=== PATIENT | female | born 1975 | race Caucasian/White ===

== ENCOUNTER → 2016-09-28 | Outpatient (REF) | payer OTHER ==
[2016-09-28 12:26] LABS: FREE T4 0.94 NG/DL (0.76-1.46)
[2016-09-28 12:45] LABS: MEAN CORPUSCULAR HEMOGLOBIN 25.4 pg (27.0-33.0); MEAN CORPUSCULAR HGB CONC 30.7 g/dl (32.0-36.5); MEAN CORPUSCULAR VOLUME 82.9 fl (80.0-96.0); RED CELL DISTRIBUTION WIDTH 16.1 % (11.5-14.5)
== END ==
LOC: M SFHCPLAZ 11:09
PROVIDERS: ATTEND Nurse Practitioner Family
DX: D50.9 Iron deficiency anemia, unspecified (principal); E03.9 Hypothyroidism, unspecified; E55.9 Vitamin D deficiency, unspecified

== ENCOUNTER → 2017-05-03 | Outpatient (REF) | payer OTHER ==
[2017-05-03 12:27] LABS: ALBUMIN 4.1 GM/DL (3.2-5.2); ALBUMIN/GLOBULIN RATIO 1.21 (1.00-1.93); ALKALINE PHOSPHATASE 75 U/L (45-117); ALT/SGPT 21 U/L (12-78); ANION GAP 6 MEQ/L (8-16); AST/SGOT 12 U/L (15-37); BILIRUBIN,TOTAL 0.3 MG/DL (0.2-1.0); BLOOD UREA NITROGEN 10 MG/DL (7-18); CALCIUM LEVEL 9.2 MG/DL (8.5-10.1); CARBON DIOXIDE LEVEL 30 MEQ/L (21-32); CHLORIDE LEVEL 106 MEQ/L (98-107); CHOLESTEROL LEVEL 252 MG/DL (<200); FREE T4 0.98 NG/DL (0.76-1.46); GLOMERULAR FILTRATION RATE > 60.0 (>58); GLUCOSE, FASTING 98 MG/DL (70-105); POTASSIUM SERUM 4.8 MEQ/L (3.5-5.1); SODIUM LEVEL 142 MEQ/L (136-145); TOTAL PROTEIN 7.5 GM/DL (6.4-8.2); TRIGLYCERIDES LEVEL 159 MG/DL (<150)
== END ==
LOC: M SFHCPLAZ 08:37
PROVIDERS: ATTEND Nurse Practitioner Family
DX: E78.2 Mixed hyperlipidemia (principal); E03.9 Hypothyroidism, unspecified

== ENCOUNTER → 2017-06-06 | Outpatient (REF) | payer OTHER ==
[2017-06-06 19:36] LABS: ANION GAP 8 MEQ/L (8-16); BLOOD UREA NITROGEN 9 MG/DL (7-18); CALCIUM LEVEL 9.3 MG/DL (8.5-10.1); CARBON DIOXIDE LEVEL 31 MEQ/L (21-32); CHLORIDE LEVEL 97 MEQ/L (98-107); CREATININE FOR GFR 0.78 MG/DL (0.55-1.02); GLOMERULAR FILTRATION RATE > 60.0 (>58); GLUCOSE, FASTING 96 MG/DL (70-105); POTASSIUM SERUM 3.6 MEQ/L (3.5-5.1); SODIUM LEVEL 136 MEQ/L (136-145)
== END ==
LOC: M SFHCPLAZ 15:11
PROVIDERS: ATTEND Nurse Practitioner Family
DX: I10 Essential (primary) hypertension (principal)

== ENCOUNTER → 2017-07-01 | Outpatient (REF) | payer OTHER ==
[2017-07-05 14:10] LABS: FREE CORTISOL 24HR URINE 8 ug/24 hr (0-50); FREE CORTISOL URINE 2 ug/L (Undefined)
== END ==
LOC: M LAB REF 09:14
PROVIDERS: ATTEND Internal Medicine Endocrinology, Diabetes & Metabolism
DX: E66.01 Morbid (severe) obesity due to excess calories (principal); Z68.41 Body mass index [BMI] 40.0-44.9, adult

== ENCOUNTER → 2017-07-08 | Outpatient (REF) | payer OTHER ==
[2017-07-08 13:28] LABS: ANION GAP 9 MEQ/L (8-16); BLOOD UREA NITROGEN 9 MG/DL (7-18); CALCIUM LEVEL 9.2 MG/DL (8.5-10.1); CARBON DIOXIDE LEVEL 29 MEQ/L (21-32); CHLORIDE LEVEL 99 MEQ/L (98-107); CREATININE FOR GFR 0.79 MG/DL (0.55-1.02); GLOMERULAR FILTRATION RATE > 60.0 (>58); GLUCOSE, FASTING 96 MG/DL (70-105); POTASSIUM SERUM 3.7 MEQ/L (3.5-5.1); SODIUM LEVEL 137 MEQ/L (136-145)
== END ==
LOC: M SFHCADAM 10:22
PROVIDERS: ATTEND Nurse Practitioner Family
DX: I10 Essential (primary) hypertension (principal)

== ENCOUNTER → 2017-07-31 | Outpatient (REF) | payer OTHER | LOC: M LABDRWAD 13:47 | PROVIDERS: ATTEND Internal Medicine Endocrinology, Diabetes & Metabolism | DX: E03.9 Hypothyroidism, unspecified (principal) ==

== ENCOUNTER → 2017-08-15 | Outpatient (CLI) | payer BC | LOC: M WHC 14:33 | DX: Z12.31 Encounter for screening mammogram for malignant neoplasm of breast (principal) | CPT/HCPCS: 77067 ==

== ENCOUNTER → 2017-08-15 | Outpatient (REF) | payer OTHER | LOC: M SFHCWAGY 15:10 | DX: Z12.4 Encounter for screening for malignant neoplasm of cervix (principal) ==

== ENCOUNTER → 2017-11-16 | Outpatient (CLI) | payer OTHER ==
[2017-11-16 17:47] LABS: ANION GAP 7 MEQ/L (8-16); BLOOD UREA NITROGEN 10 MG/DL (7-18); CALCIUM LEVEL 8.7 MG/DL (8.5-10.1); CARBON DIOXIDE LEVEL 28 MEQ/L (21-32); CHLORIDE LEVEL 108 MEQ/L (98-107); CREATININE FOR GFR 0.85 MG/DL (0.55-1.30); GLOMERULAR FILTRATION RATE > 60.0 (>58); GLUCOSE, FASTING 103 MG/DL (70-100); POTASSIUM SERUM 4.4 MEQ/L (3.5-5.1); SODIUM LEVEL 143 MEQ/L (136-145)
== END ==
LOC: M ADAMS 08:07
DX: I10 Essential (primary) hypertension (principal)
CPT/HCPCS: 80048

== ENCOUNTER → 2018-07-14 | Outpatient (REF) | payer OTHER ==
[2018-07-14 13:59] LABS: ALBUMIN 4.2 GM/DL (3.2-5.2); ALBUMIN/GLOBULIN RATIO 1.27 (1.00-1.93); ALKALINE PHOSPHATASE 73 U/L (45-117); ALT/SGPT 22 U/L (12-78); ANION GAP 6 MEQ/L (8-16); AST/SGOT 13 U/L (7-37); BILIRUBIN,TOTAL 0.3 MG/DL (0.2-1.0); BLOOD UREA NITROGEN 14 MG/DL (7-18); CALCIUM LEVEL 9.2 MG/DL (8.5-10.1); CARBON DIOXIDE LEVEL 29 MEQ/L (21-32); CHLORIDE LEVEL 101 MEQ/L (98-107); CHOLESTEROL LEVEL 246 MG/DL (<200); CHOLESTEROL RISK RATIO 4.823 (<5); CREATININE FOR GFR 0.85 MG/DL (0.55-1.30); GLOMERULAR FILTRATION RATE > 60.0 (>58); GLUCOSE, FASTING 120 MG/DL (70-100); HDL CHOLESTEROL 51 MG/DL (>40); LDL CHOLESTEROL 159 MG/DL (<100); NON-HDL-C 195 MG/DL; POTASSIUM SERUM 4.6 MEQ/L (3.5-5.1); SODIUM LEVEL 136 MEQ/L (136-145); TOTAL PROTEIN 7.5 GM/DL (6.4-8.2); TRIGLYCERIDES LEVEL 180 MG/DL (<150)
== END ==
LOC: M SFHCADAM 08:03
DX: I10 Essential (primary) hypertension (principal); E78.2 Mixed hyperlipidemia
CPT/HCPCS: 80053

== ENCOUNTER → 2018-12-16 | Outpatient (REF) | payer OTHER ==
[2018-12-16 14:26] LABS: MALB URINE SIEMENS 9.1 MG/L; MAU/CREAT RATIO 5.8 MCG/MG (0.0-30.0)
[2018-12-16 14:43] LABS: ALBUMIN 3.8 GM/DL (3.2-5.2); ALT/SGPT 22 U/L (12-78); BILIRUBIN,TOTAL 0.4 MG/DL (0.2-1.0); BLOOD UREA NITROGEN 8 MG/DL (7-18); CALCIUM LEVEL 8.6 MG/DL (8.5-10.1); CARBON DIOXIDE LEVEL 28 MEQ/L (21-32); CHLORIDE LEVEL 101 MEQ/L (98-107); CREATININE FOR GFR 0.84 MG/DL (0.55-1.30); GLOMERULAR FILTRATION RATE > 60.0 (>58); GLUCOSE, FASTING 112 MG/DL (70-100); POTASSIUM SERUM 4.1 MEQ/L (3.5-5.1); SODIUM LEVEL 135 MEQ/L (136-145); TOTAL PROTEIN 7.7 GM/DL (6.4-8.2)
[2018-12-16 14:49] LABS: TOTAL 25(OH) VITAMIN D 41.4 NG/ML (30.0-100.0)
== END ==
LOC: M SFHCADAM 08:12
PROVIDERS: ATTEND Nurse Practitioner Family
DX: I10 Essential (primary) hypertension (principal); R73.03 Prediabetes; E55.9 Vitamin D deficiency, unspecified

== ENCOUNTER → 2019-07-18 | Outpatient (CLI) | payer OTHER ==
[2019-07-18 11:27] LABS: ALBUMIN 3.7 GM/DL (3.2-5.2); ALT/SGPT 25 U/L (12-78); BILIRUBIN,TOTAL 0.6 MG/DL (0.2-1.0); BLOOD UREA NITROGEN 8 MG/DL (7-18); CALCIUM LEVEL 8.8 MG/DL (8.5-10.1); CARBON DIOXIDE LEVEL 29 MEQ/L (21-32); CHLORIDE LEVEL 102 MEQ/L (98-107); CHOLESTEROL LEVEL 247 MG/DL (<200); CREATININE FOR GFR 0.86 MG/DL (0.55-1.30); GLOMERULAR FILTRATION RATE > 60.0 (>58); GLUCOSE, FASTING 107 MG/DL (70-100); HDL CHOLESTEROL 50 MG/DL (>40); LDL CHOLESTEROL 165 MG/DL (<100); NON-HDL-C 197 MG/DL; POTASSIUM SERUM 4.4 MEQ/L (3.5-5.1); SODIUM LEVEL 139 MEQ/L (136-145); TOTAL PROTEIN 7.2 GM/DL (6.4-8.2); TRIGLYCERIDES LEVEL 158 MG/DL (<150)
[2019-07-18 11:41] LABS: MALB URINE SIEMENS 6.9 MG/L; MAU/CREAT RATIO 3.2 MCG/MG (0.0-30.0)
== END ==
LOC: M ADAMS 08:36
PROVIDERS: ATTEND Nurse Practitioner Family
DX: I10 Essential (primary) hypertension (principal); R73.03 Prediabetes

== ENCOUNTER → 2020-09-20 | Outpatient (REF) | payer OTHER ==
[2020-09-20 14:32] LABS: BLOOD UREA NITROGEN 9 MG/DL (7-18); CALCIUM LEVEL 9.8 MG/DL (8.5-10.1); CARBON DIOXIDE LEVEL 31 MEQ/L (21-32); CHLORIDE LEVEL 96 MEQ/L (98-107); CREATININE FOR GFR 0.89 MG/DL (0.55-1.30); GLOMERULAR FILTRATION RATE > 60.0 (>58); GLUCOSE, FASTING 108 MG/DL (70-100); POTASSIUM SERUM 4.4 MEQ/L (3.5-5.1); SODIUM LEVEL 134 MEQ/L (136-145)
[2020-09-20 15:35] LABS: BASO # 0.1 10^3/uL (0.0-0.2); EOS # 0.1 10^3/uL (0.0-0.5); EOS % 1.4 % (0.0-3.0); HEMATOCRIT 41.8 % (36.0-47.0); HEMOGLOBIN 13.3 g/dl (12.0-15.5); LYMPH # 2.5 10^3/uL (1.5-5.0); LYMPH % 29.1 % (24.0-44.0); MEAN CORPUSCULAR HEMOGLOBIN 28.9 pg (27.0-33.0); MEAN CORPUSCULAR HGB CONC 31.8 g/dl (32.0-36.5); MEAN CORPUSCULAR VOLUME 90.7 fl (80.0-96.0); MONO # 0.7 10^3/uL (0.0-0.8); MONO % 7.8 % (0.0-5.0); NEUTROPHILS # 5.1 10^3/uL (1.5-8.5); NEUTROPHILS % 60.2 % (36.0-66.0); PLATELET COUNT, AUTOMATED 280 10^3/uL (150-450); RED BLOOD COUNT 4.61 10^6/uL (4.00-5.40); WHITE BLOOD COUNT 8.4 10^3/uL (4.0-10.0)
== END ==
LOC: M SFHCPLAZ 11:13
PROVIDERS: ATTEND Nurse Practitioner Family
DX: H00.034 Abscess of left upper eyelid (principal); I10 Essential (primary) hypertension

== ENCOUNTER → 2020-12-23 | Outpatient (REF) | payer OTHER ==
[2020-12-23 14:30] LABS: ALBUMIN 4.1 GM/DL (3.2-5.2); ALT/SGPT 22 U/L (12-78); BILIRUBIN,TOTAL 0.4 MG/DL (0.2-1.0); BLOOD UREA NITROGEN 13 MG/DL (7-18); CALCIUM LEVEL 9.4 MG/DL (8.5-10.1); CARBON DIOXIDE LEVEL 30 MEQ/L (21-32); CHLORIDE LEVEL 101 MEQ/L (98-107); CHOLESTEROL LEVEL 275 MG/DL (<200); CHOLESTEROL RISK RATIO 5.188 (<5); CREATININE FOR GFR 0.81 MG/DL (0.55-1.30); GLOMERULAR FILTRATION RATE > 60.0 (>58); GLUCOSE, FASTING 116 MG/DL (70-100); HDL CHOLESTEROL 53 MG/DL (>40); LDL CHOLESTEROL 185 MG/DL (<100); NON-HDL-C 222 MG/DL; POTASSIUM SERUM 4.7 MEQ/L (3.5-5.1); SODIUM LEVEL 136 MEQ/L (136-145); TOTAL 25(OH) VITAMIN D 48.8 NG/ML (30.0-100.0); TOTAL PROTEIN 7.4 GM/DL (6.4-8.2); TRIGLYCERIDES LEVEL 186 MG/DL (<150)
[2020-12-24 08:09] LABS: LDL DIRECT 188 mg/dL (0-99)
== END ==
LOC: M LAB REF 12:14 → M LABDRWAD 12:14
PROVIDERS: ATTEND Internal Medicine Endocrinology, Diabetes & Metabolism
DX: E78.2 Mixed hyperlipidemia (principal); E55.9 Vitamin D deficiency, unspecified; E03.9 Hypothyroidism, unspecified

== ENCOUNTER → 2021-02-14 | Outpatient (REF) | payer OTHER ==
[2021-02-14 13:39] LABS: BLOOD UREA NITROGEN 14 MG/DL (7-18); CALCIUM LEVEL 9.4 MG/DL (8.5-10.1); CARBON DIOXIDE LEVEL 28 MEQ/L (21-32); CHLORIDE LEVEL 102 MEQ/L (98-107); CREATININE FOR GFR 0.81 MG/DL (0.55-1.30); GLOMERULAR FILTRATION RATE > 60.0 (>58); GLUCOSE, FASTING 117 MG/DL (70-100); POTASSIUM SERUM 4.8 MEQ/L (3.5-5.1); SODIUM LEVEL 135 MEQ/L (136-145)
[2021-02-14 13:44] LABS: TOTAL 25(OH) VITAMIN D 53.6 NG/ML (30.0-100.0)
== END ==
LOC: M SFHCADAM 08:17
PROVIDERS: ATTEND Nurse Practitioner Family
DX: E55.9 Vitamin D deficiency, unspecified (principal); I10 Essential (primary) hypertension

== ENCOUNTER → 2021-04-20 | Outpatient (REF) | payer BC, OTHER ==
[~2021-04-20] MED LIST: AMLO1TAB24 PO; ATOR40TA75 PO; B-12100010 PO; CHLO125TA PO; D31000TA2 PO; FERR324T2 PO; LEVO250T12 PO; LISI30TA4 PO; MAGN400T2 PO; NP T60TA PO; POTA20TA6 PO; RISATAB3 PO
== END ==
LOC: M SFHCPLAZ 16:51
PROVIDERS: ATTEND Physician Assistant
DX: R19.7 Diarrhea, unspecified (principal); R53.83 Other fatigue
CPT/HCPCS: 87505; U0003

== ENCOUNTER 2021-04-21 14:39 | Inpatient (IN) | payer BC, OTHER ==
[~2021-04-21] VITALS: Ht 165.1 cm; Wt 127.0 kg
[2021-04-21] MEDS ORDERED: NS 1,000 ML IV ONE (16:20)
[2021-04-21 17:12] LABS: CALCIUM LEVEL 8.2 MG/DL (8.5-10.1); CREATININE FOR GFR 2.65 MG/DL (0.55-1.30); GLOMERULAR FILTRATION RATE 20.5 (>58); POTASSIUM SERUM 2.8 MEQ/L (3.5-5.1)
[2021-04-21] MEDS ORDERED: NP T60TA PO (17:12)
[2021-04-21] MEDS ORDERED: CHLO125TA PO ×2 (17:12)
[2021-04-21] MEDS ORDERED: LISI30TA4 PO (17:12)
[2021-04-21 17:27] LABS: RSV AMPLIFICATION NEGATIVE (NEGATIVE)
--- NOTE | 2021-04-21 18:14 | REPVR ---
PROCEDURE INFORMATION: Exam: CT Abdomen And Pelvis Without Contrast Exam date and time: 04/21/2021 4:57 PM Age: 46 years old Clinical indication: Other: Llq pain, acute renal failure TECHNIQUE: Imaging protocol: Computed tomography of the abdomen and pelvis without contrast. Radiation optimization: All CT scans at this facility use at least one of these dose optimization techniques: automated exposure control; mA and/or kV adjustment per patient size (includes targeted exams where dose is matched to clinical indication); or iterative reconstruction. COMPARISON: CR HIP COMPLETE (AP/LAT) 06/14/2015 8:25 AM FINDINGS: Lungs: Trace bibasilar atelectasis or scar. Small hiatal hernia. Liver: Normal. No mass. Gallbladder and bile ducts: Normal. No calcified stones. No ductal dilation. Pancreas: Normal. No ductal dilation. Spleen: Normal. No splenomegaly. Adrenal glands: Normal. No mass. Kidneys and ureters: Normal. No hydronephrosis. Stomach and bowel: There is no bowel dilatation to indicate obstruction. No pneumatosis. There is severe circumferential wall thickening beginning at the splenic flexure of the colon and extending throughout the descending colon to the junction with the sigmoid colon, with adjacent fat stranding. Small amount free fluid in the left pericolic gutter. No free air. Scattered small foci calcific density in the colon, most likely ingested radiodense tablets. Mobile cecum in the right mid abdomen. No free air. Appendix: A portion of the appendix is dilated at the tip measuring up to 9 mm, but there is no significant adjacent fat stranding in the remainder of the appendix is normal in caliber at 6 mm. This may be within normal limits for this patient, although it is difficult to completely exclude early appendicitis. Intraperitoneal space: See "Stomach and bowel" finding. Vasculature: Small pelvic phleboliths. There is atherosclerotic calcification in the internal iliac arteries bilaterally, greater than expected for the patient's age. Lymph nodes: Multiple small periaortic and right lower quadrant lymph nodes. Urinary bladder: Unremarkable as visualized. Reproductive: There are a few small calcifications in the ovaries of questionable clinical significance. Bones/joints: No acute osseous abnormality. Soft tissues: Small noninflamed fat containing umbilical hernia. Prior midline abdominal incision. IMPRESSION: 1. Severe regional colitis involving the descending colon, with marked circumferential wall thickening, adjacent fat stranding, and small amount of free fluid in the pericolic gutter. No free air or bowel obstruction. This could be infectious, inflammatory, or ischemic. 2. Small noninflamed fat containing umbilical hernia peer 3. Small hiatal hernia. 4. Atherosclerosis in the internal iliac arteries bilaterally greater than expected for the patient's age. Electronically signed by: Kristy Bowers On 04/21/2021 18:14:24 PM
[2021-04-21] MEDS ORDERED: KCL 10MEQ/100ML SWI (KRUN) 10 MEQ in IV 1 EA IV ONE (18:30)
[2021-04-21] MEDS ORDERED: ACETAMINOPHEN TAB 650MG DOSE (2X325MG) PO PRN (18:35)
[2021-04-21] MEDS ORDERED: POTASSIUM CHLORIDE 10MEQ SR TABLET PO ONE (18:35)
[2021-04-21] MEDS ORDERED: B-12100010 PO (18:54)
[2021-04-21] MEDS ORDERED: D31000TA2 PO (18:54)
[2021-04-21] MEDS ORDERED: FERR324T2 PO (18:54)
[2021-04-21] MEDS ORDERED: MAGN400T2 PO (18:54)
[2021-04-21] MEDS ORDERED: HOME MED LIST COMPLETE! XX SCH (18:55)
--- NOTE | 2021-04-21 20:14 | HPEPDOC ---
General Date of Admission 04/21/21 Date of Service: Apr 21, 2021 Chief Complaint diarrhea Source: Patient History of Present Illness Kayleen White is a 46 year old female with significant hx of htn, hdl and hypothyroid who arrives with complaints of diarrhea. Pt reports she has been having diarrhea x1 week. She reports she ate pizza with family on Saturday and noted that evening episode of diarrhea. Over course of the week, episodes 5-15 in a day and associated fatigue, weakness and stomach cramping. Pt reports the stomach cramping has resolved, but she did begin to feel weak/ lightheaded/ dizzy today and thus she came to ED. She reports eating nothing else out of ordi nary this week as she has had poor appetite. She remarked her family members who also ate the pizza have had no symptoms. Pt denies jones, sinus congestion, SOB, CP, cough, fever/ chills, sensory changes or syncope. Home Medications Scheduled Chlorthalidone (Chlorthalidone) 25 Mg Tablet, 12.5 MG PO DAILY, (Reported) Cholecalciferol (Vitamin D3) (Vitamin D3) 1,000 Unit Tablet, 1,000 UNITS PO DAILY, (Reported) Cyanocobalamin (Vitamin B-12) (Vitamin B-12) 1,000 Mcg Capsule, 1,000 MCG PO DAILY, (Reported) Ferrous Sulfate (Ferrous Sulfate) 324 Mg Tablet.dr, 324 MG PO DAILY, (Reported) Lisinopril (Lisinopril) 30 Mg Tablet, 30 MG PO DAILY, (Reported) Magnesium Oxide (Magnesium Oxide) 400 Mg Tablet, 400 MG PO DAILY, (Reported) Thyroid,Pork (Straight Truck Driver Thyroid) 60 Mg Tablet, 60 MG PO DAILY, (Reported) AFTERNOON Allergies Coded Allergies: Penicillins (Verified Allergy, Unknown, HIVES, 04/21/21) Past Medical History Medical History htn, hdl, hypothyroid Surgical History hand cyst removal, c sections x2 Family History Significant Family History: No pertinent family hx Mother- uterine CA, Father- hypothyroid, Sister- Down syndrome Social History * Smoker: former Smoker (smoked for 7 years total ), cigarettes Alcohol: Denies Drugs: denies Recent Travel/Sick Contacts: Denies: Recent travel, Recent sick contacts Psychosocial History: No pertinent psych hx A-FIB/CHADSVASC A-FIB History Current/History of A-Fib/PAF?: No Current PO Anticoag Therapy: No Review of Systems Constitutional: Reports: Weakness, Fatigue; Denies: Chills, Fever, Night Sweats Eyes: Denies: Pain, Vision change ENT: Denies: Head Aches, Ear Pain, Dysphagia Skin: Denies: Rash, Lesions, Breakdown Pulmonary: Denies: Dyspnea, Cough Cardiovascular: Reports: Lt Headedness; Denies: Chest Pain, Palpitations, Orthopnea, Paroxysmal Noc. Dyspnea Gastrointestinal: Reports: Abdominal Pain, Diarrhea; Denies: Nausea, Vomiting Genitourinary: Denies: Dysuria, Frequency, Incontinence, Retention Hematologic: Denies: Bruising, Bleeding Excessively Musculoskeletal: Denies: Neck Pain, Back Pain, Joint Pain, Muscle Pain, Spasms Neurological: Denies: Weakness, Numbness, Change in speech, Confusion Psych: Reports: Mood Normal; Denies: Depression, Memory Issues Physical Examination General Exam: Positive: Alert, No Acute Distress Eye Exam: Positive: PERRLA, Conjunctiva & lids normal, EOMI; Negative: Sclera icteric ENT Exam: Positive: Atraumatic, Mucous membr. moist/pink, Pharynx Normal Neck Exam: Positive: Supple; Negative: JVD, thyromegaly Chest Exam: Positive: Clear to auscultation, Normal air movement Heart Exam: Positive: Rate Normal, Regular Rhythm, Normal S1, Normal S2; Negative: Murmurs, Rubs Telemetry: Positive: No significant arrhythmia Abdomen Exam: Positive: BS Hyperactive, Soft, Hernia (umbilical), Other (+ body habitus ); Negative: Tenderness, Hepatospenomegaly Extremity Exam: Positive: Normal pulses; Negative: Clubbing, Cyanosis, Edema Skin Exam: Positive: Nl turgor and temperature; Negative: Breakdown, Lesion Neuro Exam: Positive: Normal Gait, Normal Speech, Cranial Nerves 3-12 NL, Reflexes 2+ Psych Exam: Positive: Mental status NL, Mood NL, Oriented x 3 Vital Signs Vital Signs Date Time Temp Pulse Resp B/P (MAP) Pulse Ox O2 Delivery O2 Flow Rate FiO2 04/21/21 18:12 98.8 86 20 113/51 (71) 98 Room Air Laboratory Data Labs 24H Laboratory Tests 2 04/21/21 16:31: Anion Gap 11, Glomerular Filtration Rate 20.5L, Calcium Level 8.2L, Magnesium Level 2.0, Coronavirus (COVID-19)(PCR) NEGATIVE, Influenza Type A (RT-PCR) NEGATIVE, Influenza Type B (RT-PCR) NEGATIVE, Respiratory Syncytial Virus (PCR) NEGATIVE 04/21/21 17:43: POC Lactate (Misc Panel) 0.97 CBC/BMP Laboratory Tests 04/21/21 16:31 Microbiology Microbiology 04/21/21 Gastrointestinal Tract Panel (PCR), Received Pending RAD Interpretation STUDY: Ct a/p Rad Actions: Report Reviewed RAD Interpretation: Other Result Comments: (Pt notified regarding hiatal hernia, umbilical hernia and increased arterosclerosis for age of internal Iliac arteries ) Assessment/Plan 1. OTILIA in setting of GI loss: Also, complicated by home medications of thiazide diuretic and coni inhibitor. -Monitor pt, UOP, Is and Os -Hydrate gently with serial BMPs given hyponatremia -Avoid nephrotoxins, home medications will be held -Consider Nephrology consult pent labs/ pt response 2. Diarrhea 2/2 Salmonella: -Monitor for worsening s/s infection -Strict is and os -GI panel + salmonella and Levaquin ordered, renally adjusted, given pt allergy to PCN 3. Hyponatremia and Hypokalemia: In setting of diarrhea and home diuretic use. -Fluid balance, strict Is and Os -Serum osmo, urine osmo, urine sodium -Replete K -Gentle hydration with serial BMPs, caution to not over correct in 24 hours -Consider Nephrology consult pent labs/ pt response 4. HTN: Monitor BP in setting of above with fluid losses. Home medications held given OTILIA. Consider PRN coverage accordingly. 5. HDL: pt is not on any lipid lowering agent. Check lipid panel. 6. Thyroid: Will check tsh, continue home med once reconciled. 7 Class 3 obesity complicates care: we will check her A1C DVT: Hep CODE: Full Dispo: Home, anticipate 2 midnights Plan / VTE VTE Prophylaxis Ordered?: Yes FRED BELTRAN NP Apr 21, 2021 19:01 GERLAD WILDER MD Apr 21, 2021 20:55
[2021-04-21] MEDS ORDERED: LevoFLOXacin 500 MG TABLET PO ONE (20:25)
[2021-04-21 20:38] LABS: HEMATOCRIT 32.8 % (36.0-47.0); HEMOGLOBIN 11.1 g/dl (12.0-15.5); MEAN CORPUSCULAR HEMOGLOBIN 28.5 pg (27.0-33.0); MEAN CORPUSCULAR HGB CONC 33.8 g/dl (32.0-36.5); MEAN CORPUSCULAR VOLUME 84.3 fl (80.0-96.0); PLATELET COUNT, AUTOMATED 238 10^3/uL (150-450); RED BLOOD COUNT 3.89 10^6/uL (4.00-5.40); WHITE BLOOD COUNT 9.3 10^3/uL (4.0-10.0)
[2021-04-21 21:00] LABS: CALCIUM LEVEL 7.9 MG/DL (8.5-10.1); CREATININE FOR GFR 2.48 MG/DL (0.55-1.30); GLOMERULAR FILTRATION RATE 22.1 (>58)
[2021-04-21] MEDS: NS 1,000 ML IV SCH (21:10)
[2021-04-21 21:17] LABS: LYMPHOCYTES 14 % (16-44); MONOCYTES 5 % (0-5); NEUTROPHILS 65 % (28-66)
[2021-04-21 21:18] LABS: PLATELET ESTIMATE NORMAL (NORMAL)
[2021-04-21 21:19] LABS: DOHLE BODIES 1+
[2021-04-21] MEDS: HEPARIN SOD (PORCINE) 5000UNITS/ML 1ML VIAL/SYRINGE SC SCH (22:00)
[2021-04-22 01:14] LABS: CALCIUM LEVEL 7.7 MG/DL (8.5-10.1); CREATININE FOR GFR 2.3 MG/DL (0.55-1.30); GLOMERULAR FILTRATION RATE 24.1 (>58)
[2021-04-22] MEDS: HEPARIN SOD (PORCINE) 5000UNITS/ML 1ML VIAL/SYRINGE SC SCH ×3 (05:56→21:46)
[2021-04-22] MEDS: NS 1,000 ML IV SCH ×4 (05:56→20:54)
[2021-04-22 08:24] LABS: SODIUM,RANDOM URINE < 10 MEQ/L
[2021-04-22] MEDS: LACTOBACILLUS ACIDOPHILUS CAP (BACID) PO SCH (08:40)
[2021-04-22] MEDS: CYANOCOBALAMIN 500 MCG TAB PO SCH (08:40)
[2021-04-22] MEDS: VITAMIN D 1,000 INTERNATIONAL UNITS TABLET PO SCH (08:40)
[2021-04-22] MEDS: THYROID 30 MG TAB PO SCH (08:40)
[2021-04-22] MEDS: POTASSIUM CHLORIDE 10MEQ SR TABLET PO SCH ×2 (08:40→20:50)
[2021-04-22] MEDS: MAGNESIUM OXIDE 400MG TAB (MAG-OX) PO SCH (08:41)
[2021-04-22 09:00] LABS: CALCIUM LEVEL 7.9 MG/DL (8.5-10.1); CREATININE FOR GFR 1.86 MG/DL (0.55-1.30); GLOMERULAR FILTRATION RATE 30.8 (>58); POTASSIUM SERUM 2.9 MEQ/L (3.5-5.1)
[2021-04-22] MEDS ORDERED: FERROUS SULFATE 325MG TAB PO SCH (09:00)
--- NOTE | 2021-04-22 09:23 | IPNPDOC ---
Text Note Date of Service The patient was seen on 04/22/21. NOTE Subjective: Patient is a 46-year-old female with a PMHx of HTN, DLP, Hypothyroidism, who presented to ER with diarrhea. Upon arrival to ER, patient was found to be weak and had acute kidney injury, hyponatremia and hypokalemia. Patient was admitted to the hospital service for further evaluation and treatment. Patient was seen and examined at the bedside. Patient denies any chest pain, shortness of breath, palpitations, nausea, vomiting or abdominal discomfort. Patient reports that she still experiences some diarrhea. Reports that her weakness has had some improvement. Objective: Vitals (See below) General: Sitting up in bed and eating breakfast appears to be comfortable, AAOx3 HEENT: NC, AT CVS: +S1S2 Lungs: Fair air entry b/l, no wheezing, rales or rhonchi Abdomen: Soft, ND, NT Extremities: No evidence of edema, - Calf tenderness Imagin. Severe regional colitis involving the descending colon, with marked circumferential wall thickening, adjacent fat stranding, and small amount of free fluid in the pericolic gutter. No free air or bowel obstruction. This could be infectious, inflammatory, or ischemic. 2. Small noninflamed fat containing umbilical hernia peer 3. Small hiatal hernia. 4. Atherosclerosis in the internal iliac arteries bilaterally greater than expected for the patient's age. Assessment and plan: Diarrhea - likely 2/2 salmonella - Patient has reported diffuse watery diarrhea since Saturday - Patient is currently hemodynamically stable and afebrile - No evidence of leukocytosis - GI Panel /: Salmonella - Imaging noted above - c/w Levofloxacin (Day #2) OTILIA - likely 2/2 pre-renal etiology - 2/2 volume loss 2/2 diarrhea and d iuretics, possibly 2/2 intra-renal etiology - 2/2 medications - Baseline kidney function appears to be 0.6 - Creatinine on admission of 2.4; has been trending down - UA noted - c/w IV fluid hydration Hyponatremia - likely 2/2 hypotonic hypovolemic etiology - Na has been slowly improving - Osmolality noted - c/w IV fluid hydration HTN - Will hold BP medications at this time - Will resume within 24 hours DLP - Lipid panel pending - Currently not on any medications Hypothyroidism - c/w Levothyroxine Obesity - BMI 46.6 - Complicating medical care DVT prophylaxis - c/w Heparin Disposition: - Anticipate discharge home tomorrow VSHarpreet, I+O Harpreet JC I+O Laboratory Tests 04/21/21 16:31 04/21/21 20:28 04/22/21 00:26 04/22/21 08:18 Vital Signs Date Time Temp Pulse Resp B/P (MAP) Pulse Ox O2 Delivery O2 Flow Rate FiO2 04/22/21 06:15 81 18 120/58 (78) 95 Room Air 04/21/21 18:12 98.8 I&O- Last 24 Hours up to 6 AM 04/22/21 06:00 Intake Total 2100 ml Balance 2100 ml SHIRA EMANUEL MD Apr 22, 2021 09:23
[2021-04-22] MEDS: KCL 10MEQ/100ML SWI (KRUN) 10 MEQ in IV 1 EA IV SCH ×2 (10:20→11:54)
[2021-04-22 11:20] LABS: HEMOGLOBIN 10.3 g/dl (12.0-15.5); MEAN CORPUSCULAR HGB CONC 34.3 g/dl (32.0-36.5); MEAN CORPUSCULAR VOLUME 84.5 fl (80.0-96.0); PLATELET COUNT, AUTOMATED 226 10^3/uL (150-450); RED BLOOD COUNT 3.55 10^6/uL (4.00-5.40); WHITE BLOOD COUNT 7.3 10^3/uL (4.0-10.0)
[2021-04-22 11:47] LABS: ATYPICAL LYMPH 3 % (0-5); LYMPHOCYTES 13 % (16-44); MONOCYTES 7 % (0-5); NEUTROPHILS 62 % (28-66)
[2021-04-22 11:48] LABS: PLATELET ESTIMATE NORMAL (NORMAL)
[2021-04-22 13:48] LABS: CALCIUM LEVEL 8.3 MG/DL (8.5-10.1); CREATININE FOR GFR 1.9 MG/DL (0.55-1.30); POTASSIUM SERUM 3.2 MEQ/L (3.5-5.1)
[2021-04-22 15:45] VITALS: BP 109/56
[2021-04-22] MEDS: LevoFLOXacin 250 MG TABLET PO SCH (17:26)
[2021-04-22 19:37] VITALS: BP 120/58
[2021-04-23] VITALS: BP 139/65
[2021-04-23] MEDS: NS 1,000 ML IV SCH ×3 (01:58→15:34)
[2021-04-23 03:31] LABS: HEMATOCRIT 30.3 % (36.0-47.0); HEMOGLOBIN 10.2 g/dl (12.0-15.5); MEAN CORPUSCULAR HEMOGLOBIN 28.5 pg (27.0-33.0); MEAN CORPUSCULAR HGB CONC 33.7 g/dl (32.0-36.5); MEAN CORPUSCULAR VOLUME 84.6 fl (80.0-96.0); PLATELET COUNT, AUTOMATED 233 10^3/uL (150-450); RED BLOOD COUNT 3.58 10^6/uL (4.00-5.40); WHITE BLOOD COUNT 5.8 10^3/uL (4.0-10.0)
[2021-04-23 03:57] LABS: CALCIUM LEVEL 8.1 MG/DL (8.5-10.1); CREATININE FOR GFR 1.38 MG/DL (0.55-1.30); GLOMERULAR FILTRATION RATE 43.4 (>58); POTASSIUM SERUM 3.4 MEQ/L (3.5-5.1)
[2021-04-23 04:00] VITALS: BP 134/71
[2021-04-23 04:24] LABS: ATYPICAL LYMPH 1 % (0-5); BASOPHILS 1 % (0-1); LYMPHOCYTES 15 % (16-44); MONOCYTES 4 % (0-5); NEUTROPHILS 78 % (28-66); PLATELET ESTIMATE NORMAL (NORMAL)
[2021-04-23 04:25] LABS: ANISOCYTOSIS 1+
[2021-04-23] MEDS: HEPARIN SOD (PORCINE) 5000UNITS/ML 1ML VIAL/SYRINGE SC SCH ×2 (05:34→13:15)
[2021-04-23 08:00] VITALS: BP 134/70
[2021-04-23] MEDS: CYANOCOBALAMIN 500 MCG TAB PO SCH (08:07)
[2021-04-23] MEDS: LACTOBACILLUS ACIDOPHILUS CAP (BACID) PO SCH (08:07)
[2021-04-23] MEDS: THYROID 30 MG TAB PO SCH (08:07)
[2021-04-23] MEDS: MAGNESIUM OXIDE 400MG TAB (MAG-OX) PO SCH (08:07)
[2021-04-23] MEDS: POTASSIUM CHLORIDE 10MEQ SR TABLET PO SCH (08:07)
[2021-04-23] MEDS: VITAMIN D 1,000 INTERNATIONAL UNITS TABLET PO SCH (08:07)
[2021-04-23 12:00] VITALS: BP 136/77
[2021-04-23 15:40] LABS: CALCIUM LEVEL 7.9 MG/DL (8.5-10.1); CREATININE FOR GFR 1.17 MG/DL (0.55-1.30); GLOMERULAR FILTRATION RATE 52.6 (>58); POTASSIUM SERUM 3.3 MEQ/L (3.5-5.1)
[2021-04-23] MEDS ORDERED: RISATAB3 PO (15:55)
[2021-04-23] MEDS ORDERED: LEVO250T12 PO (15:55)
[2021-04-23] MEDS ORDERED: AMLO1TAB24 PO (15:56)
[2021-04-23 16:00] VITALS: BP 130/66
[2021-04-23] MEDS ORDERED: POTASSIUM CHLORIDE 10MEQ SR TABLET PO ONE (16:00)
[2021-04-23] MEDS ORDERED: POTA20TA6 PO (16:00)
[2021-04-23] MEDS ORDERED: ATOR40TA75 PO (16:08)
--- NOTE | 2021-04-23 16:08 | DS.PDOC ---
Discharge Summary General Date of Admission Apr 21, 2021 at 18:35 Date of Discharge 04/23/2021 Discharge Summary PROCEDURES PERFORMED DURING STAY: [None]. ADMITTING DIAGNOSES / DISCHARGE DIAGNOSES: Diarrhea - likely 2/2 salmonella s/p OTILIA - likely 2/2 pre-renal etiology - 2/2 volume loss 2/2 diarrhea and diuretics, possibly 2/2 intra-renal etiology - 2/2 medications Hyponatremia - likely 2/2 hypotonic hypovolemic etiology HTN DLP Hypothyroidism Obesity DVT prophylaxis COMPLICATIONS/CHIEF COMPLAINT: OTILIA HISTORY OF PRESENT ILLNESS: Patient is a 46-year-old female with a PMHx of HTN, DLP, Hypothyroidism, who presented to ER with diarrhea. Upon arrival to ER, patient was found to be weak and had acute kidney injury, hyponatremia and hypokalemia. Patient was admitted to the hospital service for further evaluation and treatment. Patient was seen and examined at the bedside. This morning denied any chest pain, chest breath, palpitations, abdominal pain. Stated that she has not exper ienced any further diarrhea this afternoon. HOSPITAL COURSE: Diarrhea - likely 2/2 salmonella - Patient has reported significant improvement of her diarrhea - Blood pressure has normalized and she remains afebrile - No evidence of leukocytosis - GI Panel 04/21: Salmonella - Imaging noted above - c/w Levofloxacin (Day #3); will complete antibiotics as an outpatient - Will have outpatient follow-up with primary care provider within the next 7 days s/p OTILIA - likely 2/2 pre-renal etiology - 2/2 volume loss 2/2 diarrhea and diuretics, possibly 2/2 intra-renal etiology - 2/2 medications - Baseline kidney function appears to be 0.6 - Creatinine on admission of 2.4; Cr has normalized and is approaching baseline - UA noted - Will DC IV fluid hydration - Will have outpatient follow-up with primary care provider within the next 7 days Hyponatremia - likely 2/2 hypotonic hypovolemic etiology - Na has been slowly improving - Osmolality noted - c/w IV fluid hydration HTN - BP has become normotensive - Will hold Chlorthalidone / Lisinopril on discharge - Will start Amlodipine on discharge - Will have outpatient follow-up with primary care provider within the next 7 days DLP - Will start Atorvastatin on discharge Hypothyroidism - c/w Levothyroxine Obesity - BMI 46.6 - Complicating medical care DVT prophylaxis - c/w Heparin DISCHARGE MEDICATIONS: Please see below. ALLERGIES: Please see below. PHYSICAL EXAMINATION ON DISCHARGE: Vitals (See below) General: Patient sitting up in bed, appears to be comfortable, reported improvement, awake and alert, oriented 3 HEENT: NC, AT CVS: +S1S2 Lungs: Fair air entry b/l, auscultation is without any wheezing, rales or rhonchi Abdomen: Soft, non-distended, non-tender Extremities: LE are without edema LABORATORY DATA: Please see below. IMAGING: CT abdomen / pelvis 04/21: 1. Severe regional colitis involving the descending colon, with marked circumferential wall thickening, adjacent fat stranding, and small amount of free fluid in the pericolic gutter. No free air or bowel obstruction. This cou ld be infectious, inflammatory, or ischemic. 2. Small noninflamed fat containing umbilical hernia peer 3. Small hiatal hernia. 4. Atherosclerosis in the internal iliac arteries bilaterally greater than expected for the patient's age. ACTIVITY: [As tolerated]. DISCHARGE PLAN: Please follow up with PCP within 7 days Remain compliant with treatment plan and medications Return to the ER if you experience any problems DISPOSITION: Home DISCHARGE CONDITION: [Stable]. TIME SPENT ON DISCHARGE: 35 minutes Vital Signs/I&Os Vital Signs Date Time Temp Pulse Resp B/P (MAP) Pulse Ox O2 Delivery O2 Flow Rate FiO2 04/23/21 12:00 98.4 75 17 136/77 (96) 99 Room Air I&O- Last 24 Hours up to 6 AM 04/23/21 05:59 Intake Total 3950 ml Output Total 1100 ml Balance 2850 ml Laboratory Data Labs 24H Laboratory Tests 2 04/23/21 03:04: Neutrophils (%) (Auto) , Nucleated Red Blood Cells % (auto) 0.0, Neutrophils 78H, Band Neutrophils 1, Lymphocytes (Manual) 15L, Monocytes (Manual) 4, Basophils (Manual) 1, Atypical Lymphocytes 1, Anisocytosis 1+, Platelet Estimate NORMAL, Anion Gap 9, Glomerular Filtration Rate 43.4L, Calcium Level 8.1L 04/23/21 15:01: Anion Gap 6L, Glomerular Filtration Rate 52.6L, Calcium Level 7.9L CBC/BMP Laboratory Tests 04/23/21 03:04 04/23/21 15:01 Microbiology Microbiology 04/21/21 Gastrointestinal Tract Panel (PCR) - Final, Resulted Salmonella Discharge Medications Scheduled Amlodipine Besylate (Amlodipine Besylate) 5 Mg Tablet, 5 MG PO DAILY Cholecalciferol (Vitamin D3) (Vitamin D3) 1,000 Unit Tablet, 1,000 UNITS PO DAILY, (Reported) Cyanocobalamin (Vitamin B-12) (Vitamin B-12) 1,000 Mcg Capsule, 1,000 MCG PO DAILY, (Reported) Ferrous Sulfate (Ferrous Sulfate) 324 Mg Tablet.dr, 324 MG PO DAILY, (Reported) L.acidoph/L.bulg/B.bif/S.therm (Leena-Bid Caplet) 1 Each Tablet, 1 EA PO DAILY Levofloxacin (Levofloxacin) 250 Mg Tablet, 250 MG PO DAILY@1800 Magnesium Oxide (Magnesium Oxide) 400 Mg Tablet, 400 MG PO DAILY, (Reported) Thyroid,Pork ([employer] Kiln Drawer Thyroid) 60 Mg Tablet, 60 MG PO DAILY, (Reported) AFTERNOON Allergies Coded Allergies: Penicillins (Verified Allergy, Unknown, HIVES, 04/21/21) SHIRA EMANUEL MD Apr 23, 2021 16:08
[2021-04-23] MEDS: LevoFLOXacin 250 MG TABLET PO SCH (17:05)
[2021-04-24] MEDS ORDERED: LevoFLOXacin 750 MG TABLET PO SCH (06:00)
== END 2021-04-23 17:28 | disposition home or self-care (01) | DRG 724 ==
LOC: M ED 14:39 → M ED INP 18:35 → ENRESERV 04-22 13:52 → M PCU 04-22 15:38
PROVIDERS: ADMIT Internal Medicine; ATTEND Internal Medicine
DX: A02.9 Salmonella infection, unspecified (principal); N17.9 Acute kidney failure, unspecified; E87.1 Hypo-osmolality and hyponatremia; Z68.42 Body mass index [BMI] 45.0-49.9, adult; I10 Essential (primary) hypertension; E78.5 Hyperlipidemia, unspecified; E03.9 Hypothyroidism, unspecified; Z79.899 Other long term (current) drug therapy; Z20.822 Contact with and (suspected) exposure to COVID-19; Z88.0 Allergy status to penicillin; Z87.891 Personal history of nicotine dependence; R19.7 Diarrhea, unspecified; E87.6 Hypokalemia; E66.9 Obesity, unspecified

== ENCOUNTER → 2021-04-21 | Outpatient (REF) | payer OTHER ==
[2021-04-21 13:01] LABS: BASO # 0.1 10^3/uL (0.0-0.2); BASO % 0.4 % (0.0-1.0); HEMATOCRIT 33.3 % (36.0-47.0); HEMOGLOBIN 11.3 g/dl (12.0-15.5); LYMPH # 1.3 10^3/uL (1.5-5.0); LYMPH % 10.6 % (24.0-44.0); MEAN CORPUSCULAR HEMOGLOBIN 28.8 pg (27.0-33.0); MEAN CORPUSCULAR HGB CONC 33.9 g/dl (32.0-36.5); MEAN CORPUSCULAR VOLUME 84.7 fl (80.0-96.0); MONO # 1.2 10^3/uL (0.0-0.8); MONO % 10.2 % (2.0-8.0); NEUTROPHILS # 9.2 10^3/uL (1.5-8.5); NEUTROPHILS % 77.6 % (36.0-66.0); PLATELET COUNT, AUTOMATED 247 10^3/uL (150-450); RED BLOOD COUNT 3.93 10^6/uL (4.00-5.40); WHITE BLOOD COUNT 11.9 10^3/uL (4.0-10.0)
[2021-04-21 13:36] LABS: ALBUMIN 2.6 GM/DL (3.2-5.2); BILIRUBIN,TOTAL 0.5 MG/DL (0.2-1.0); CALCIUM LEVEL 8.3 MG/DL (8.5-10.1); CREATININE FOR GFR 2.58 MG/DL (0.55-1.30); GLOMERULAR FILTRATION RATE 21.1 (>58); TOTAL PROTEIN 6.6 GM/DL (6.4-8.2)
== END ==
LOC: M SFHCPLAZ 10:36 → M SFHCADAM 11:08
PROVIDERS: ATTEND Physician Assistant
DX: R19.7 Diarrhea, unspecified (principal); R53.83 Other fatigue

== ENCOUNTER → 2021-05-09 | Outpatient (REF) | payer OTHER ==
[2021-05-09 13:09] LABS: MALB URINE SIEMENS 16.5 MG/L; MAU/CREAT RATIO 6.9 MCG/MG (0.0-30.0)
[2021-05-09 13:12] LABS: ALT/SGPT 25 U/L (12-78); BILIRUBIN,TOTAL 0.5 MG/DL (0.2-1.0); BLOOD UREA NITROGEN 11 MG/DL (7-18); CALCIUM LEVEL 8.7 MG/DL (8.5-10.1); CARBON DIOXIDE LEVEL 31 MEQ/L (21-32); CHLORIDE LEVEL 105 MEQ/L (98-107); CHOLESTEROL LEVEL 129 MG/DL (<200); CHOLESTEROL RISK RATIO 2.744 (<5); CREATININE FOR GFR 0.97 MG/DL (0.55-1.30); GLOMERULAR FILTRATION RATE > 60.0 (>58); GLUCOSE, FASTING 116 MG/DL (70-100); HDL CHOLESTEROL 47 MG/DL (>40); LDL CHOLESTEROL 50 MG/DL (<100); NON-HDL-C 82 MG/DL; POTASSIUM SERUM 4.3 MEQ/L (3.5-5.1); SODIUM LEVEL 139 MEQ/L (136-145); TOTAL PROTEIN 6.2 GM/DL (6.4-8.2); TRIGLYCERIDES LEVEL 161 MG/DL (<150)
== END ==
LOC: M SFHCADAM 08:03
PROVIDERS: ATTEND Nurse Practitioner Family
DX: E78.2 Mixed hyperlipidemia (principal); I10 Essential (primary) hypertension

== ENCOUNTER → 2021-10-30 | Outpatient (CLI) | payer BC, OTHER ==
[~2021-10-30] MED LIST changes: +ATOR1TAB19 PO; -D31000TA2 PO; -LEVO250T12 PO; +LEVO250T3 PO; +LISI10TA22 PO; +POTA-151 PO; -POTA20TA6 PO; +VITA100093 PO
== END ==
LOC: M LABSMTC 09:29
PROVIDERS: ATTEND Anesthesiology
DX: Z01.818 Encounter for other preprocedural examination (principal); Z11.52 Encounter for screening for COVID-19

== ENCOUNTER 2021-11-24 10:11 | Day surgery (SDC) | payer BC, OTHER ==
[~2021-11-24] VITALS: Ht 165.1 cm; Wt 126.6 kg
[~2021-11-24 10:11] MED LIST changes: +NS 1,000 ML IV ONE
[2021-11-24] MEDS ORDERED: LIDOCAINE 2% 100MG/5ML SDV (FOR ANES.) As Ordered ONE (11:03)
[2021-11-24] MEDS ORDERED: propofoL 200 MG/20 ML VIAL As Ordered ONE ×4 (11:03→12:14)
[2021-11-24] MEDS ORDERED: GLUCAGON INJ 1MG VIAL As Ordered ONE (12:14)
[2021-11-24 12:46] VITALS: BP 134/58
== END 2021-11-24 12:49 | disposition home or self-care (01) ==
LOC: M OPP 10:11
PROVIDERS: ATTEND Internal Medicine Gastroenterology
DX: Z12.11 Encounter for screening for malignant neoplasm of colon (principal); K63.89 Other specified diseases of intestine; K63.5 Polyp of colon; K57.30 Diverticulosis of large intestine without perforation or abscess without bleeding; N28.9 Disorder of kidney and ureter, unspecified; Z79.01 Long term (current) use of anticoagulants; Z79.02 Long term (current) use of antithrombotics/antiplatelets; Z88.0 Allergy status to penicillin; Z91.013 Allergy to seafood; Z80.41 Family history of malignant neoplasm of ovary; Z87.19 Personal history of other diseases of the digestive system
CPT/HCPCS: 45380; 45385; 88305; J1610

== ENCOUNTER → 2021-11-27 | Outpatient (REF) | payer OTHER ==
[~2021-11-27] MED LIST changes: -NS 1,000 ML IV ONE
== END ==
LOC: M SFHCADAM 08:10
PROVIDERS: ATTEND Nurse Practitioner Family
DX: Z53.9 Procedure and treatment not carried out, unspecified reason (principal)

== ENCOUNTER → 2021-11-28 | Outpatient (CLI) | payer BC, OTHER ==
[2021-11-28 12:58] LABS: ALBUMIN 3.8 GM/DL (3.2-5.2); ALT/SGPT 23 U/L (12-78); BILIRUBIN,TOTAL 0.3 MG/DL (0.2-1.0); BLOOD UREA NITROGEN 10 MG/DL (7-18); CALCIUM LEVEL 9.1 MG/DL (8.5-10.1); CARBON DIOXIDE LEVEL 30 MEQ/L (21-32); CHLORIDE LEVEL 104 MEQ/L (98-107); CHOLESTEROL LEVEL 195 MG/DL (<200); CHOLESTEROL RISK RATIO 4.239 (<5); CREATININE FOR GFR 0.98 MG/DL (0.55-1.30); GLOMERULAR FILTRATION RATE > 60.0 (>58); GLUCOSE, FASTING 107 MG/DL (70-100); HDL CHOLESTEROL 46 MG/DL (>40); LDL CHOLESTEROL 93 MG/DL (<100); NON-HDL-C 149 MG/DL; POTASSIUM SERUM 4.5 MEQ/L (3.5-5.1); SODIUM LEVEL 138 MEQ/L (136-145); TOTAL 25(OH) VITAMIN D 41.8 NG/ML (30.0-100.0); TOTAL PROTEIN 7.3 GM/DL (6.4-8.2); TRIGLYCERIDES LEVEL 281 MG/DL (<150)
[2021-11-29 07:17] LABS: LDL DIRECT 105 mg/dL (0-99)
== END ==
LOC: M ADAMS 08:26
PROVIDERS: ATTEND Internal Medicine Endocrinology, Diabetes & Metabolism
DX: E78.2 Mixed hyperlipidemia (principal); E03.9 Hypothyroidism, unspecified; E55.9 Vitamin D deficiency, unspecified

== ENCOUNTER → 2023-11-18 | Outpatient (REF) | payer BC ==
[~2023-11-18] MED LIST changes: +LEVO1TAB38 PO; -LEVO250T3 PO
[2023-11-18 12:36] LABS: BASO # 0.1 10^3/uL (0.0-0.2); BASO % 0.8 % (0.0-1.0); EOS # 0.2 10^3/uL (0.0-0.5); EOS % 2.3 % (0.0-3.0); HEMATOCRIT 41.1 % (36.0-47.0); HEMOGLOBIN 12.9 g/dl (12.0-15.5); LYMPH % 38.8 % (24.0-44.0); MEAN CORPUSCULAR HEMOGLOBIN 28.7 pg (27.0-33.0); MEAN CORPUSCULAR HGB CONC 31.4 g/dl (32.0-36.5); MEAN CORPUSCULAR VOLUME 91.5 fl (80.0-96.0); MONO # 0.6 10^3/uL (0.0-0.8); MONO % 7.3 % (2.0-8.0); NEUTROPHILS # 3.9 10^3/uL (1.5-8.5); NEUTROPHILS % 50.5 % (36.0-66.0); PLATELET COUNT, AUTOMATED 274 10^3/uL (150-450); RED BLOOD COUNT 4.49 10^6/uL (4.00-5.40); WHITE BLOOD COUNT 7.8 10^3/uL (4.0-10.0)
[2023-11-18 13:01] LABS: HEMOGLOBIN A1c 5.8 % (4.0-6.0)
[2023-11-18 13:09] LABS: ALBUMIN 3.7 G/DL (3.2-5.2); ALKALINE PHOSPHATASE 102 U/L (46-116); ALT/SGPT 14 U/L (7.0-40); AST/SGOT < 8 U/L (<34); BILIRUBIN,TOTAL 0.4 MG/DL (0.3-1.2); BLOOD UREA NITROGEN 18 MG/DL (9-23); CARBON DIOXIDE LEVEL 29 MMOL/L (20-31); CHLORIDE LEVEL 103 MMOL/L (98-107); CHOLESTEROL LEVEL 165 MG/DL (<200); CHOLESTEROL RISK RATIO 3.94 (<5); CREATININE FOR GFR 0.83 MG/DL (0.55-1.30); GLOMERULAR FILTRATION RATE > 60.0 (>51); GLUCOSE, FASTING 118 MG/DL (60-100); HDL CHOLESTEROL 41.8 MG/DL (>40); LDL CHOLESTEROL 88.4 MG/DL (<100); NON-HDL-C 123.2 MG/DL; POTASSIUM SERUM 4.9 MMOL/L (3.5-5.1); SODIUM LEVEL 139 MMOL/L (136-145); THYROID STIMULATING HORMONE 4.158 uIU/ML (0.55-4.78); TOTAL PROTEIN 6.8 G/DL (5.7-8.2); TRIGLYCERIDES LEVEL 174 MG/DL (<150)
[2023-11-18 13:10] LABS: TOTAL 25(OH) VITAMIN D 57.5 NG/ML (20.0-100.0)
[2023-11-18 13:11] LABS: FREE T4 0.72 NG/DL (0.89-1.76)
== END ==
LOC: M SFHCPLAZ 07:55
PROVIDERS: ATTEND Physician Assistant
DX: E78.2 Mixed hyperlipidemia (principal); E03.9 Hypothyroidism, unspecified; E55.9 Vitamin D deficiency, unspecified; D50.8 Other iron deficiency anemias; I10 Essential (primary) hypertension; R73.03 Prediabetes

== ENCOUNTER → 2024-12-22 | Outpatient (REF) | payer BC ==
[2024-12-24 15:04] LABS: HPV APTIMA Not Detected (Not Detected)
== END ==
LOC: M SFHCWAGY 17:00
PROVIDERS: ATTEND Nurse Practitioner Family
DX: Z12.4 Encounter for screening for malignant neoplasm of cervix (principal); Z11.51 Encounter for screening for human papillomavirus (HPV)

== ENCOUNTER → 2024-12-22 | Outpatient (CLI) | payer BC | LOC: M WHC 15:26 | PROVIDERS: ATTEND Nurse Practitioner Family | DX: Z12.31 Encounter for screening mammogram for malignant neoplasm of breast (principal); R92.323 Mammographic fibroglandular density, bilateral breasts ==

== ENCOUNTER → 2025-02-10 | Outpatient (REF) | payer BC ==
[2025-02-10 15:08] LABS: CHOLESTEROL LEVEL 168.0 MG/DL (<200); CHOLESTEROL RISK RATIO 3.62 (<5); IRON (FE) 57.0 UG/DL (50-170); LDL CHOLESTEROL 82.9 MG/DL (<100); NON-HDL-C 121.7 MG/DL; PERCENT SATURATION 16.1 % (13.2-45.0); PLATELET COUNT, AUTOMATED 281 10^3/uL (150-450); TRIGLYCERIDES LEVEL 194.0 MG/DL (<150)
[2025-02-10 15:10] LABS: FREE T4 0.66 NG/DL (0.89-1.76)
[2025-02-10 15:14] LABS: ESTIMATED AVERAGE GLUCOSE 137.0 MG/DL (60-110)
== END ==
LOC: M SFHCADAM 07:37
PROVIDERS: ATTEND Nurse Practitioner Family
DX: D50.9 Iron deficiency anemia, unspecified (principal); E03.9 Hypothyroidism, unspecified; R73.03 Prediabetes; E78.2 Mixed hyperlipidemia